=== PATIENT | female | born 1960 | race Caucasian/White ===

== ENCOUNTER 2017-11-13 11:57 | Inpatient (IN) | payer OTHER ==
[~2017-11-13] VITALS: Ht 167.6 cm; Wt 131.5 kg
[~2017-11-13 11:57] MED LIST: ACTOS45 MG; AMOX1TAB12 PO; AMPICILLIN IV; ASA81 MG; Atrovent 0.02% (0.5 MG/2.5 ML AMPUL) IH; Avapro PO; CAPOTEN50 MG; CIPRO500 MG PO; GABAPENTIN600 MG; GLIPIZIDE10 MG; Glucophage PO; HYDROCHLOROTHIA50 MG; HYDROCODONE-CHLORPH SUSP 115ML PO; HumaLOG 100 UNIT/1 ML (3ML) SUBCUTANEO; HumuLIN 70-30 VIAL 3ML SUBCUTANEO; LANTUS100 U/ML; LEVAQUIN750 MG PO; LIPITOR40 MG; METFORMIN HCL1000 MG; Pepcid 40MG TAB PO; Proventil 0.083% 2.5MG/3ML AMPUL.NEB. IH; SULBACTAM IV; ULTRACET PO; VANCOMYCIN H1 G/VIAL IV; ZOCOR40 MG
[2017-11-16] MEDS ORDERED: FUROSEMIDE20 MG PO (11:22)
[2017-11-16] MEDS ORDERED: HYDRALAZINE HCL25 MG PO (11:22)
[2017-11-16] MEDS ORDERED: ISOSORBIDE MONO30 MG PO (11:22)
== END 2017-11-16 17:03 | disposition home or self-care (01) | DRG 292 ==
LOC: ER 11:57 → MEDI 20:51
PROC: 3E0F7GC Introduction of Other Therapeutic Substance into Respiratory Tract, Via Natural or Artificial Opening (ICD-10-PCS; principal; 2017-11-13)
PROC: 4A033R1 Measurement of Arterial Saturation, Peripheral, Percutaneous Approach (ICD-10-PCS; 2017-11-13)
PROC: B246ZZZ Ultrasonography of Right and Left Heart (ICD-10-PCS; 2017-11-14)
PROC: 4A12X4Z Monitoring of Cardiac Electrical Activity, External Approach (ICD-10-PCS; 2017-11-14)
DX: I11.0 Hypertensive heart disease with heart failure (principal); L97.528 Non-pressure chronic ulcer of other part of left foot with other specified severity; J90 Pleural effusion, not elsewhere classified; J45.41 Moderate persistent asthma with (acute) exacerbation; I50.33 Acute on chronic diastolic (congestive) heart failure; I27.29 Other secondary pulmonary hypertension; E66.01 Morbid (severe) obesity due to excess calories; E11.621 Type 2 diabetes mellitus with foot ulcer; E11.65 Type 2 diabetes mellitus with hyperglycemia

== ENCOUNTER → 2017-11-20 | Emergency (ER) | payer OTHER ==
[~2017-11-20] VITALS: Ht 167.6 cm; Wt 129.3 kg
[~2017-11-20] MED LIST changes: +FUROSEMIDE20 MG PO; +HYDRALAZINE HCL25 MG PO; +ISOSORBIDE MONO30 MG PO
== END | disposition home or self-care (01) ==
LOC: ER 18:58
DX: S42.252A Displaced fracture of greater tuberosity of left humerus, initial encounter for closed fracture (principal); W18.39XA Other fall on same level, initial encounter; Y93.89 Activity, other specified; Y92.89 Other specified places as the place of occurrence of the external cause; Y99.8 Other external cause status; E11.9 Type 2 diabetes mellitus without complications

== ENCOUNTER 2017-11-25 11:57 | Emergency (ER) | payer OTHER ==
[~2017-11-25] VITALS: Ht 167.6 cm; Wt 129.3 kg
== END 2017-11-25 14:51 | disposition home or self-care (01) ==
LOC: ER 11:57
DX: S42.295S Other nondisplaced fracture of upper end of left humerus, sequela (principal); X58.XXXS Exposure to other specified factors, sequela

== ENCOUNTER 2017-12-06 10:56 | Outpatient (CLI) | payer OTHER | END 2017-12-06 11:06 | disposition home or self-care (01) | LOC: TOM 10:56 | DX: M25.512 Pain in left shoulder (principal); S42.311A Greenstick fracture of shaft of humerus, right arm, initial encounter for closed fracture ==

== ENCOUNTER 2018-11-01 15:24 | Emergency (ER) | payer OTHER ==
[~2018-11-01] VITALS: Ht 167.6 cm; Wt 158.8 kg
== END 2018-11-01 22:55 | disposition home or self-care (01) ==
LOC: ER 15:24
DX: J11.1 Influenza due to unidentified influenza virus with other respiratory manifestations (principal)

== ENCOUNTER 2019-10-28 08:12 | Outpatient (CLI) | payer OTHER | END 2019-10-28 08:16 | disposition home or self-care (01) | LOC: NUCLEAR 08:12 | DX: M86.8X7 Other osteomyelitis, ankle and foot (principal) | CPT/HCPCS: 78315; A9503 ==

== ENCOUNTER 2019-11-28 16:05 | Inpatient (IN) | payer OTHER ==
[~2019-11-28] VITALS: Ht 165.1 cm; Wt 127.0 kg
[2019-12-06] MEDS ORDERED: AMLODIPINE BESYL5 MG PO (14:02)
[2019-12-06] MEDS ORDERED: ISOSORBIDE MONO60 MG PO (14:02)
[2019-12-06] MEDS ORDERED: HYDRALAZINE HCL50 MG PO (14:02)
[2019-12-06] MEDS ORDERED: CARVEDILOL12.5 MG PO (14:02)
[2019-12-06] MEDS ORDERED: INTESTINEX680 M1 PO (14:02)
[2019-12-06] MEDS ORDERED: SPIRONOLACTONE25 MG PO (14:02)
[2019-12-06] MEDS ORDERED: LIPITOR40 MG PO (14:02)
== END 2019-12-06 16:10 | disposition home or self-care (01) | DRG 191 ==
LOC: ER 16:05 → SURH 11-29 10:07
PROVIDERS: ADMIT Internal Medicine
PROC: 4A12X4Z Monitoring of Cardiac Electrical Activity, External Approach (ICD-10-PCS; principal; 2019-11-29)
PROC: 3E0F7GC Introduction of Other Therapeutic Substance into Respiratory Tract, Via Natural or Artificial Opening (ICD-10-PCS; 2019-11-29)
PROC: CB2YYZZ Tomographic (Tomo) Nuclear Medicine Imaging of Respiratory System using Other Radionuclide (ICD-10-PCS; 2019-11-29)
PROC: 8E0ZXY6 Isolation (ICD-10-PCS; 2019-11-29)
PROC: 02HV33Z Insertion of Infusion Device into Superior Vena Cava, Percutaneous Approach (ICD-10-PCS; 2019-12-02)
DX: J44.1 Chronic obstructive pulmonary disease with (acute) exacerbation (principal); I13.0 Hypertensive heart and chronic kidney disease with heart failure and stage 1 through stage 4 chronic kidney disease, or unspecified chronic kidney disease; N18.4 Chronic kidney disease, stage 4 (severe); L97.429 Non-pressure chronic ulcer of left heel and midfoot with unspecified severity; N17.9 Acute kidney failure, unspecified; N39.0 Urinary tract infection, site not specified; I50.9 Heart failure, unspecified; E11.22 Type 2 diabetes mellitus with diabetic chronic kidney disease; E11.65 Type 2 diabetes mellitus with hyperglycemia; Z79.4 Long term (current) use of insulin; R09.02 Hypoxemia; G47.33 Obstructive sleep apnea (adult) (pediatric); E11.621 Type 2 diabetes mellitus with foot ulcer; E11.51 Type 2 diabetes mellitus with diabetic peripheral angiopathy without gangrene; E66.01 Morbid (severe) obesity due to excess calories; B96.20 Unspecified Escherichia coli [E. coli] as the cause of diseases classified elsewhere; E86.0 Dehydration; R19.7 Diarrhea, unspecified

== ENCOUNTER 2020-03-19 14:43 | Inpatient (IN) | payer OTHER ==
[~2020-03-19] VITALS: Ht 167.6 cm; Wt 133.4 kg
[~2020-03-19 14:43] MED LIST changes: +AMLODIPINE BESYL5 MG PO; +CARVEDILOL12.5 MG PO; +HYDRALAZINE HCL50 MG PO; +INTESTINEX680 M1 PO; +ISOSORBIDE MONO60 MG PO; +LIPITOR40 MG PO; +SPIRONOLACTONE25 MG PO
== END 2020-03-23 16:39 | disposition home or self-care (01) | DRG 638 ==
LOC: ER 14:43 → MEDI 17:50
PROVIDERS: ADMIT Internal Medicine; ATTEND Internal Medicine
PROC: 4A12X4Z Monitoring of Cardiac Electrical Activity, External Approach (ICD-10-PCS; principal; 2020-03-19)
PROC: 4A033R1 Measurement of Arterial Saturation, Peripheral, Percutaneous Approach (ICD-10-PCS; 2020-03-19)
PROC: 0T9B70Z Drainage of Bladder with Drainage Device, Via Natural or Artificial Opening (ICD-10-PCS; 2020-03-19)
DX: E11.65 Type 2 diabetes mellitus with hyperglycemia (principal); N39.0 Urinary tract infection, site not specified; N17.8 Other acute kidney failure; J44.1 Chronic obstructive pulmonary disease with (acute) exacerbation; L97.525 Non-pressure chronic ulcer of other part of left foot with muscle involvement without evidence of necrosis; E11.621 Type 2 diabetes mellitus with foot ulcer; B96.29 Other Escherichia coli [E. coli] as the cause of diseases classified elsewhere; B95.4 Other streptococcus as the cause of diseases classified elsewhere; E66.01 Morbid (severe) obesity due to excess calories; I73.9 Peripheral vascular disease, unspecified; I10 Essential (primary) hypertension; R31.0 Gross hematuria; Z20.828 Contact with and (suspected) exposure to other viral communicable diseases; Z79.4 Long term (current) use of insulin

== ENCOUNTER 2020-06-02 07:42 | Inpatient (IN) | payer OTHER ==
[~2020-06-02] VITALS: Ht 162.6 cm; Wt 138.3 kg
== END 2020-06-12 13:56 | disposition home or self-care (01) | DRG 623 ==
LOC: ER 07:42 → MEDI 20:43 → ICU-2 20:43 → SEC-K 20:43 → ICU-2 22:17 → SEC-K 06-04 09:41 → MEDI 06-04 14:03
PROVIDERS: ADMIT Internal Medicine; ATTEND Internal Medicine
PROC: 4A033R1 Measurement of Arterial Saturation, Peripheral, Percutaneous Approach (ICD-10-PCS; 2020-06-02)
PROC: B246ZZZ Ultrasonography of Right and Left Heart (ICD-10-PCS; 2020-06-02)
PROC: 4A12X4Z Monitoring of Cardiac Electrical Activity, External Approach (ICD-10-PCS; 2020-06-04)
PROC: 4A02XM4 Measurement of Cardiac Total Activity, External Approach (ICD-10-PCS; 2020-06-07)
PROC: 3E073KZ Introduction of Other Diagnostic Substance into Coronary Artery, Percutaneous Approach (ICD-10-PCS; 2020-06-07)
PROC: 0JBQ0ZZ Excision of Right Foot Subcutaneous Tissue and Fascia, Open Approach (ICD-10-PCS; principal; 2020-06-09)
DX: E11.621 Type 2 diabetes mellitus with foot ulcer (principal); J44.1 Chronic obstructive pulmonary disease with (acute) exacerbation; L97.421 Non-pressure chronic ulcer of left heel and midfoot limited to breakdown of skin; L97.422 Non-pressure chronic ulcer of left heel and midfoot with fat layer exposed; L97.423 Non-pressure chronic ulcer of left heel and midfoot with necrosis of muscle; L97.424 Non-pressure chronic ulcer of left heel and midfoot with necrosis of bone; N17.8 Other acute kidney failure; E11.65 Type 2 diabetes mellitus with hyperglycemia; E66.01 Morbid (severe) obesity due to excess calories; I73.9 Peripheral vascular disease, unspecified; I50.9 Heart failure, unspecified; I27.20 Pulmonary hypertension, unspecified; B96.29 Other Escherichia coli [E. coli] as the cause of diseases classified elsewhere; B95.61 Methicillin susceptible Staphylococcus aureus infection as the cause of diseases classified elsewhere; Z20.828 Contact with and (suspected) exposure to other viral communicable diseases; Z79.4 Long term (current) use of insulin

== ENCOUNTER 2020-06-23 15:30 | Inpatient (IN) | payer OTHER ==
[~2020-06-23] VITALS: Ht 165.1 cm; Wt 139.3 kg
[2020-07-02] MEDS ORDERED: AMLODIPINE BESYL5 MG PO (10:20)
[2020-07-02] MEDS ORDERED: LIPITOR40 MG PO (10:20)
[2020-07-02] MEDS ORDERED: CARVEDILOL25 MG PO (10:21)
[2020-07-02] MEDS ORDERED: LOSARTAN POTAS100 MG PO (10:21)
[2020-07-02] MEDS ORDERED: HYDRALAZINE HCL50 MG PO (10:21)
[2020-07-02] MEDS ORDERED: FUROSEMIDE20 MG PO (10:22)
== END 2020-07-02 12:40 | disposition home or self-care (01) | DRG 292 ==
LOC: ER 15:30 → ICU-2 21:04 → MEDI 06-26 23:46
PROVIDERS: ADMIT Internal Medicine; ATTEND Internal Medicine
PROC: 4A033R1 Measurement of Arterial Saturation, Peripheral, Percutaneous Approach (ICD-10-PCS; 2020-06-23)
PROC: 4A12X4Z Monitoring of Cardiac Electrical Activity, External Approach (ICD-10-PCS; 2020-06-27)
PROC: 3E0F7GC Introduction of Other Therapeutic Substance into Respiratory Tract, Via Natural or Artificial Opening (ICD-10-PCS; principal; 2020-06-28)
DX: I13.0 Hypertensive heart and chronic kidney disease with heart failure and stage 1 through stage 4 chronic kidney disease, or unspecified chronic kidney disease (principal); J90 Pleural effusion, not elsewhere classified; I50.1 Left ventricular failure, unspecified; N17.8 Other acute kidney failure; N18.9 Chronic kidney disease, unspecified; I27.29 Other secondary pulmonary hypertension; I73.9 Peripheral vascular disease, unspecified; E66.01 Morbid (severe) obesity due to excess calories; E11.22 Type 2 diabetes mellitus with diabetic chronic kidney disease; E11.65 Type 2 diabetes mellitus with hyperglycemia; E11.621 Type 2 diabetes mellitus with foot ulcer; E87.5 Hyperkalemia; L97.521 Non-pressure chronic ulcer of other part of left foot limited to breakdown of skin; R05 Cough; R09.02 Hypoxemia; Z79.4 Long term (current) use of insulin; Z20.828 Contact with and (suspected) exposure to other viral communicable diseases

== ENCOUNTER 2020-09-07 10:58 | Emergency (ER) | payer OTHER ==
[~2020-09-07] VITALS: Ht 167.6 cm; Wt 124.7 kg
[~2020-09-07 10:58] MED LIST changes: +CARVEDILOL25 MG PO; +LOSARTAN POTAS100 MG PO
== END 2020-09-07 20:59 | disposition home or self-care (01) ==
LOC: ER 10:58 → CPU-OBS 11:01 → ER 20:59
DX: R07.89 Other chest pain (principal); Z20.822 Contact with and (suspected) exposure to COVID-19
CPT/HCPCS: 93005; G0378; G0379

== ENCOUNTER → 2020-11-10 | Outpatient (CLI) | payer OTHER | END | disposition home or self-care (01) | LOC: PPH VACUNA | DX: Z23 Encounter for immunization (principal) ==

== ENCOUNTER → 2020-12-01 07:50 | Outpatient (CLI) | payer OTHER | END | disposition home or self-care (01) | LOC: PPH VACUNA 07:50 | DX: Z23 Encounter for immunization (principal) ==